=== PATIENT | female | born 1990 | race Caucasian/White ===

== ENCOUNTER 2018-10-02 03:21 | Inpatient (IN) | payer OTHER ==
[2018-10-02 06:35] LABS: ABS Lymphocytes 1.8 10^3/ul (1.0-4.8); ABS Monocytes 0.6 10^3/ul (0-0.8); ABS Neutrophils 7.9 10^3/ul (1.5-7.7); Eosinophil % 0.3 %; Hematocrit 34 % (35-47); Hemoglobin 11.2 g/dL (12.0-16.0); Lymphocyte % 17.5 %; Mean Corpuscular HGB Conc 33 g/dL (31-36); Mean Corpuscular Hemoglobin 27 pg (27-31); Mean Corpuscular Volume 82 fL (80-97); Nucleated Red Blood Cells % 0.1; Platelet Count 188 10^3/uL (150-450); Red Blood Count 4.15 10^6 /uL (3.70-4.87); Red Cell Distribution Width 15 % (10.5-15); White Blood Count 10.4 10^3/uL (3.5-10.8)
[2018-10-02] MEDS ORDERED: Buffered Lidocaine 1% SYRIN* 1 ML/SYRINGE INTRADERM ONE (07:10)
[2018-10-02] MEDS ORDERED: Lactated Ringers 1000 ML Bag* 1,000 ML IV ONE ×2 (07:10→10:39)
[2018-10-02] MEDS ORDERED: Penicillin G Potassium IV* 5,000,000 UNITS in NS 0.9% 100 ML* 100 ML IVPB ONE (07:16)
[2018-10-02] MEDS ORDERED: Penicillin G Potassium IV* 2,500,000 UNITS in NS 0.9% 100 ML* 100 ML IVPB SCH ×2 (08:00→12:00)
[2018-10-02] MEDS ORDERED: Lactated Ringers 1000 ML Bag* 1,000 ML IV SCH ×3 (08:00→14:00)
[2018-10-02] MEDS ORDERED: OBEPIDURAL* 250 ML EPIDURAL ONE ×2 (09:23→10:31)
[2018-10-02] MEDS ORDERED: Lactated Ringers 1000 ML Bag* 500 ML IV PRN ×2 (10:39)
[2018-10-02] MEDS ORDERED: Phenylephrine 40 MCG/ML SYRINGE IV PUSH PRN ×2 (10:39)
[2018-10-02] MEDS ORDERED: Sodium Citrate/Citric Acid* 15 ML UDC PO PRN (10:39)
[2018-10-02] MEDS ORDERED: EPHEDrine (Pressors)* 50 MG/ML VIAL IV PUSH PRN ×2 (10:39)
[2018-10-02] MEDS ORDERED: Famotidine TAB* 20 MG PO PRN (10:39)
[2018-10-02] MEDS ORDERED: OBEPIDURAL* 250 ML EPIDURAL SCH (11:00)
--- NOTE | 2018-10-02 12:24 | PN ---
Progress Note - Progress Note Date of Service: 10/02/18 SOAP: Subjective: [Pt with increasing pressure, comfortable on epidural] Objective: [FHR: 135, +accels, -decels, moderate variability cervical exam declined] Assessment: [28 y.o. , VSS, active labor] Plan: [1) Labor down 2) Anticipate vaginal delivery]
[2018-10-02] MEDS ORDERED: Oxytocin in LR* 20 UNITS/1,000 ML BAG IVPB ONE (13:48)
[2018-10-02] MEDS ORDERED: Witch Hazel PAD* JAR ONE (13:51)
[2018-10-02] MEDS ORDERED: Dibucaine 1% 28.35 GM TUBE ONE (13:51)
--- NOTE | 2018-10-02 13:54 | PROCNOTE ---
[facility] OB: Delivery Note - Delivery A Date of : 10/02/18 Time of : 13:42 Sex: Male Score 1 Minute: 8 Score 5 Minutes: 9 Gestational Age in Weeks and Days at Delivery: 38 Weeks and 5 Days Delivery Method: Spontaneous Vaginal Labor: Spontaneous Amniotic Fluid: Clear Estimated Blood Loss: 150 Anesthesia/Analgesia: CEI for Labor Delivered By: Anne Stephens - Nursery Level of Nursery: Regular/Bedside - Perineum Perineal Injury: Abrasion Only - Not Repaired Perineal Repair: None - Events Delivery Events of Note: Pitocin Only After Delivery - Additional Delivery Notes Additional Delivery Notes: nuchal cord x 1 reduced.
[2018-10-02] MEDS ORDERED: Dibucaine 1% 28.35 GM TUBE PR PRN (13:55)
[2018-10-02] MEDS ORDERED: Acetaminophen TAB* 325 MG PO PRN (13:55)
[2018-10-02] MEDS ORDERED: Witch Hazel PAD* JAR TOPICAL PRN (13:55)
[2018-10-02] MEDS ORDERED: Glycerin ADULT SUPP PR PRN (13:55)
[2018-10-02] MEDS ORDERED: Oxytocin in LR* 20 UNITS/1,000 ML BAG IVPB SCH (14:00)
[2018-10-02] MEDS: Ibuprofen TAB* 600 MG PO PRN ×2 (15:43→21:51)
[2018-10-02] MEDS: Docusate CAP* 100 MG PO SCH ×2 (15:46→21:29)
[2018-10-02] MEDS ORDERED: Simethicone TAB* 80 MG TAB.CHEW PO SCH (17:30)
[2018-10-03] MEDS: Ibuprofen TAB* 600 MG PO PRN ×3 (04:29→18:46)
[2018-10-03 07:08] LABS: ABS Lymphocytes 1.8 10^3/ul (1.0-4.8); ABS Monocytes 0.4 10^3/ul (0-0.8); ABS Neutrophils 7.5 10^3/ul (1.5-7.7); Eosinophil % 0.2 %; Hematocrit 28 % (35-47); Hemoglobin 9.1 g/dL (12.0-16.0); Lymphocyte % 18.4 %; Mean Corpuscular HGB Conc 33 g/dL (31-36); Mean Corpuscular Hemoglobin 27 pg (27-31); Mean Corpuscular Volume 83 fL (80-97); Mean Platelet Volume 10.3 fL (7.4-10.4); Platelet Count 136 10^3/uL (150-450); Red Blood Count 3.35 10^6 /uL (3.70-4.87); Red Cell Distribution Width 15 % (10.5-15); White Blood Count 9.8 10^3/uL (3.5-10.8)
[2018-10-03] MEDS: Ferrous Gluconate TAB* 324 MG TAB PO SCH ×2 (08:07→22:34)
[2018-10-03] MEDS: Docusate CAP* 100 MG PO SCH ×3 (08:07→22:34)
[2018-10-04] MEDS: Ibuprofen TAB* 600 MG PO PRN ×2 (03:47→09:27)
[2018-10-04 08:37] VITALS: BP 114/64
[2018-10-04] MEDS: Ferrous Gluconate TAB* 324 MG TAB PO SCH (09:27)
[2018-10-04] MEDS: Docusate CAP* 100 MG PO SCH (09:27)
== END 2018-10-04 14:13 | disposition home or self-care (01) | DRG 560 ==
LOC: MCHOBOUT 03:21 → MCHOB 03:38
PROVIDERS: ADMIT Obstetrics & Gynecology; ATTEND Obstetrics & Gynecology
PROC: 10E0XZZ Delivery of Products of Conception, External Approach (ICD-10-PCS; principal; 2018-10-02)
PROC: 4A1HXCZ Monitoring of Products of Conception, Cardiac Rate, External Approach (ICD-10-PCS; 2018-10-02)
DX: O99.52 Diseases of the respiratory system complicating childbirth (principal); Z37.0 Single live birth; O69.81X0 Labor and delivery complicated by cord around neck, without compression, not applicable or unspecified; O99.824 Streptococcus B carrier state complicating childbirth; J45.909 Unspecified asthma, uncomplicated; O77.0 Labor and delivery complicated by meconium in amniotic fluid; O90.81 Anemia of the puerperium; O71.82 Other specified trauma to perineum and vulva; Z88.1 Allergy status to other antibiotic agents; Z3A.38 38 weeks gestation of pregnancy; Z91.040 Latex allergy status
CPT/HCPCS: 36415; 84112; 85025; 86850; 86900; 86901; A9270-GY; J2540

== ENCOUNTER 2019-05-08 00:05 | Emergency (ER) | payer OTHER ==
--- NOTE | 2019-05-08 02:52 | ED ---
HPI Chest Pain - HPI Summary HPI Summary: Pt is a 28 y/o F presenting to the ED with a chief complaint of chest pressure. Pt states she was seeing Dr. Carr for a chronic sinus infection that was not resolving, characterized by a productive cough, congestion, sinus pressure, headaches, and post-nasal drip. She states over the past few days, shes had intermittent chest pain described as tightness in the low sternum, tenderness in her L arm and shoulder, and tonight she had some anxiety so she came into the ED. - History of Current Complaint Chief Complaint: EDChestPainROMI Time Seen by Provider: 05/08/19 02:32 Hx Obtained From: Patient Onset/Duration: Started Days Ago, Still Present Timing: Intermittent, Lasting Hours Initial Severity: Mild Current Severity: Moderate Pain Intensity: 6 Pain Scale Used: 0-10 Numeric Chest Pain Location: Lower Sternal Chest Pain Radiates: Yes Chest Pain Radiates To:: Arm Character: Tightness Aggravating Factor(s): Nothing Alleviating Factor(s): Nothing Associated Signs and Symptoms: Positive: Chest Pain, Anxiety, Headaches, Productive Cough, Nasal Congestion, Sinus Discomfrot, Other: - L arm tenderness - Allergy/Home Medications Allergies/Adverse Reactions: Allergies Allergy/AdvReac Type Severity Reaction Status Date / Time adhesive Allergy See Comment Verified 05/08/19 00:22 Latex, Natural Rubber Allergy See Comment Verified 05/08/19 00:22 pseudoephedrine Allergy Anxiety Verified 05/08/19 00:22 Home Medications: Home Medications guaiFENesin [Mucinex] 05/08/19 [History] PMH/Surg Hx/FS Hx/Imm Hx Previously Healthy: Yes Endocrine/Hematology History: Denies: Hx Diabetes Respiratory History: Reports: Hx Asthma - prn inhaler Psychiatric History: Reports: Hx Anxiety Infectious Disease History: No Infectious Disease History: Denies: Traveled Outside the [place] in Last 30 Days - Family History Known Family History: Negative: Diabetes - Social History Alcohol Use: None Hx Substance Use: No Substance Use Type: Reports: None Hx Tobacco Use: Yes Smoking Status (MU): Former Smoker Review of Systems Positive: Nasal Discharge, Other - sinus pressure, post nasal drip Positive: Chest Pain Positive: Cough Positive: Myalgia - L arm Positive: Headache Positive: Anxious All Other Systems Reviewed And Are Negative: Yes Physical Exam - Summary Physical Exam Summary: Appearance: Well-appearing, Well-nourished, lying in bed comfortably Skin: Warm, dry, no obvious rash Eyes: sclera anicteric, no conjunctival pallor ENT: mucous membranes moist, pharynx appears normal Neck: Supple, nontender Respiratory: Clear to auscultation, no signs of respiratory distress Cardiovascular: Normal S1, S2. No murmurs. Normal distal pulses in tibial and radial bilaterally. Abdomen: Soft, nontender, normal active bowel sounds present Musculoskeletal: Normal, Strength/ROM Intact Neurological: A&Ox3, awake and alert, mentation is normal, speech is fluent and appropriate Psychiatric: affect is normal, does not appear anxious or depressed Triage Information Reviewed: Yes Vital Signs On Initial Exam: Initial Vitals Temp Pulse Resp BP Pulse Ox 97.8 F 79 15 109/91 97 05/08/19 00:19 12 00:19 12 00:19 12 00:19 05/08/19 00:19 Vital Signs Reviewed: Yes Procedures - Sedation Patient Received Moderate/Deep Sedation with Procedure: No Diagnostics - Vital Signs Vital Signs Temp Pulse Resp BP Pulse Ox 05/08/19 00:19 97.8 F 79 15 109/91 97 - Laboratory Result Diagrams: 05/08/19 02:53 05/08/19 02:53 Lab Statement: Any lab studies that have been ordered have been reviewed, and results considered in the medical decision making process. - Radiology CXR Radiology Interpretation Completed By: ED Physician Summary of Radiographic Findings: No acute process. Pending official radiology report. - EKG 0007 Cardiac Rate: NL - 90bpm EKG Rhythm: Sinus Rhythm ST Segment: Normal Ectopy: None Summary of EKG Findings: EKG at 0007 shows NSR at 90bpm with P waves, QRS complex, and T waves are within normal limits, T waves and intervals are normal , no ischemic changes. This is a normal EKG. ED physician has reviewed and interpreted this EKG. Chest Pain Course/Dx - Course Course Of Treatment: Pt is a 28 y/o F presenting to the ED with a chief complaint of chest pressure. Pt states she was seeing Dr. Carr for a chronic sinus infection that was not resolving, characterized by a productive cough, congestion, sinus pressure, headaches, and post-nasal drip. She states over the past few days, shes had intermittent chest pain described as tightness in the low sternum, tenderness in her L arm and shoulder, and anxiety. Pt's physical exam is nml. CXR shows no acute process. EKG at 0007 shows NSR at 90bpm with P waves, QRS complex, and T waves are within normal limits, T waves and intervals are normal, no ischemic changes. This is a normal EKG. ED physician has reviewed and interpreted this EKG. Pt will be d/c'ed with dx of - Diagnoses Provider Diagnoses: Chest pain Discharge ED - Sign-Out/Discharge Documenting (check all that apply): Patient Departure - Discharge Plan Condition: Good Disposition: HOME Patient Education Materials: Noncardiac Chest Pain (ED) Referrals: Session Hema ALVARADO [Primary Care Provider] - If Needed - Billing Disposition and Condition Condition: GOOD Disposition: Home - Attestation Statements Document Initiated by Cinthyaibe: Yes Documenting Scribe: Regine Espinal Provider For Whom Grace is Documenting (Include Credential): Robert King MD. Scribe Attestation: Regine Nevarez scribed for Robert King MD. on 05/08/19 at 0637. Scribe Documentation Reviewed: Yes Provider Attestation: The documentation as recorded by the Regine durand accurately reflects the service I personally performed and the decisions made by Robert singleton MD. Status of Scribe Document: Viewed
[2019-05-08 03:04] LABS: ABS Basophils 0.1 10^3/ul (0-0.2); ABS Eosinophils 0.1 10^3/ul (0-0.6); ABS Lymphocytes 2.3 10^3/ul (1.0-4.8); ABS Monocytes 0.5 10^3/ul (0-0.8); ABS Neutrophils 5.2 10^3/ul (1.5-7.7); Eosinophil % 1.2 %; Hematocrit 39 % (35-47); Lymphocyte % 28.5 %; Mean Corpuscular HGB Conc 33 g/dL (31-36); Mean Corpuscular Hemoglobin 27 pg (27-31); Mean Corpuscular Volume 83 fL (80-97); Mean Platelet Volume 9.5 fL (7.4-10.4); Nucleated Red Blood Cells % 0.1; Platelet Count 236 10^3/uL (150-450); Red Blood Count 4.75 10^6 /uL (3.70-4.87); Red Cell Distribution Width 13 % (10-15); White Blood Count 8.2 10^3/uL (3.5-10.8)
[2019-05-08 03:19] LABS: Anion Gap 6 mmol/L (2-11); BUN/Creatinine Ratio 16.9 (8-20); Blood Urea Nitrogen 10 mg/dL (6-24); CO2 Carbon Dioxide 26 mmol/L (22-32); Calcium 9.6 mg/dL (8.6-10.3); Chloride 105 mmol/L (101-111); EGFR African American 144.8 (>60); EGFR Non-African American 119.7 (>60); Glucose 103 mg/dL (70-100); Sodium 137 mmol/L (135-145)
[2019-05-08 03:26] LABS: HCG Pregnancy < 0.60 mIU/mL
[2019-05-08 04:59] VITALS: BP 109/73
== END 2019-05-08 04:55 | disposition home or self-care (01) ==
LOC: ED 00:05
DX: R07.89 Other chest pain (principal); F41.9 Anxiety disorder, unspecified; R51 Headache; R05 Cough; R09.81 Nasal congestion; M79.602 Pain in left arm; J45.909 Unspecified asthma, uncomplicated; Z91.040 Latex allergy status; Z88.8 Allergy status to other drugs, medicaments and biological substances; Z91.048 Other nonmedicinal substance allergy status; Z87.891 Personal history of nicotine dependence
CPT/HCPCS: 36415; 71046; 80048; 84484; 84702; 85025; 93005; 99282

== ENCOUNTER 2019-07-28 16:53 | Emergency (ER) | payer MEDICAID, OTHER ==
--- NOTE | 2019-07-28 17:50 | ED ---
Influenza-Like Illness - HPI Summary HPI Summary: This patient is a 29 year old F presenting to [facility] with a chief complaint of muscle pain since one week ago. Pt reports she felt like she pulled a muscle moving furniture about one week ago. Pt is having pain in her back and when touch ribs, and under breast. It was her birthday recently so she ended up driving home at 0200 on 07/27/19 because she had an upset stomach. She felt a muscle spasm in her back, and she feels very congested. However pt reports she has chronic congestion. Pt is very tired, feels nausea due to post nasal drip, and reflux. Patient reports stool getting softer, JENKINS, and coughing. Patient denies vomiting, and fever. Pt has never had a blood clot, no long drives or trips, and no pain or swelling in legs. Her father just had an VT. Pt does not smoke, and has not recently drank alcohol. Pt has a 10 month old baby at home. Medications reviewed. Allergies noted. - History of Current Complaint Chief Complaint: EDGeneral Time Seen by Provider: 07/28/19 17:34 Hx Obtained From: Patient Onset/Duration: Gradual Onset, Lasting Days, Still Present Severity: Mild Associated Signs & Symptoms: Cough, Nasal Congestion, Headache - Allergy/Home Medications Allergies/Adverse Reactions: Allergies Allergy/AdvReac Type Severity Reaction Status Date / Time adhesive Allergy See Comment Verified 07/28/19 17:06 Latex, Natural Rubber Allergy See Comment Verified 07/28/19 17:06 pseudoephedrine Allergy Anxiety Verified 07/28/19 17:06 Home Medications: Home Medications NK [No Home Medications Reported] 07/28/19 [History Confirmed 07/28/19] PMH/Surg Hx/FS Hx/Imm Hx Endocrine/Hematology History: Denies: Hx Diabetes Respiratory History: Reports: Hx Asthma - prn inhaler Psychiatric History: Reports: Hx Anxiety Infectious Disease History: No Infectious Disease History: Denies: Traveled Outside the [place] in Last 30 Days - Family History Known Family History: Positive: Other - [place] Negative: Diabetes - Social History Alcohol Use: None Hx Substance Use: No Substance Use Type: Reports: None Hx Tobacco Use: Yes Smoking Status (MU): Former Smoker Review of Systems Negative: Fever Positive: Nasal Discharge Positive: Cough Positive: Abdominal Pain, Nausea. Negative: Vomiting Positive: Other - back pain Positive: Headache All Other Systems Reviewed And Are Negative: Yes Physical Exam - Summary Physical Exam Summary: Constitutional: Well-developed, Well-nourished, Alert. (-) Distressed Skin: Warm, Dry, No rash on lateral chest wall or back HENT: Normocephalic; Atraumatic Eyes: Conjunctiva normal Neck: Musculoskeletal ROM normal neck. (-) JVD, (-) Stridor, (-) Tracheal deviation Cardio: Rhythm regular, rate normal, Heart sounds normal; Intact distal pulses; Radial pulses are 2+ and symmetric. (-) Murmur Pulmonary/Chest wall: Effort normal. (-) Respiratory distress, (-) Wheezes, (-) Rales Abd: Soft, (-) tenderness, (-) Distension, (-) Guarding, (-) Rebound Musculoskeletal: (-) Edema; two small areas of tenderness under posterior left back and under left breast; no leg swelling or tenderness Lymph: (-) Cervical adenopathy Neuro: Alert, Oriented x3 Psych: Mood and affect Normal Triage Information Reviewed: Yes Vital Signs On Initial Exam: Initial Vitals Temp Pulse Resp BP Pulse Ox 98.6 F 98 19 119/89 99 07/28/19 17:00 07/28/19 17:00 07/28/19 17:00 07/28/19 17:00 07/28/19 17:00 Vital Signs Reviewed: Yes Procedures - Sedation Patient Received Moderate/Deep Sedation with Procedure: No Diagnostics - Vital Signs Vital Signs Temp Pulse Resp BP Pulse Ox 07/28/19 17:00 98.6 F 98 19 119/89 99 - Laboratory Result Diagrams: 07/28/19 18:22 07/28/19 18:22 Lab Statement: Any lab studies that have been ordered have been reviewed, and results considered in the medical decision making process. - EKG 1753 Cardiac Rate: NL EKG Rhythm: Sinus Rhythm Summary of EKG Findings: EKG at 17:53 reveals normal sinus rhythm with rate of 78 BPM, no STEMI. This EKG was reviewed and interpreted by ED physician. Re-Evaluation - Re-Evaluation First Eval Re-Evaluation Time: 18:41 Comment: Pt will be signed out to Manish. Flu Symptom Course/Dx - Course Course Of Treatment: Patient is here with 1 week of URI symptoms and left-sided chest pain. Patient is concerned as her father had a heart attack 2 days ago. Patient's story is not consistent with ACS been EKG was performed which showed no ischemic changes. Patient signed out to Dr. Hammond pending lab work. - Diagnoses Provider Diagnoses: Left-sided chest pain, Nasal congestion, Cough Discharge ED - Sign-Out/Discharge Documenting (check all that apply): Sign-Out Patient Signing out patient TO: Heidi Hammond - pending troponin Receiving patient FROM: Leroy Tipton - Discharge Plan Condition: Stable Disposition: HOME Patient Education Materials: Upper Respiratory Infection (ED) Referrals: Session Hema ALVARADO [Primary Care Provider] - Additional Instructions: Take Motrin and Tylenol for pain, take prescribed medication for cough. Come back to ED if you have severe chest pain, trouble breathing or any other concerning symptoms. - Billing Disposition and Condition Condition: STABLE Disposition: Home - Attestation Statements Document Initiated by Scribe: Yes Documenting Scribe: Silvia Rubalcava Provider For Whom Grace is Documenting (Include Credential): Leroy Tipton MD Scribe Attestation: Silvia Nevarez, scribed for Leroy Tipton MD on 07/29/19 at 0732. Scribe Documentation Reviewed: Yes Provider Attestation: The documentation as recorded by the Silvia durand accurately reflects the service I personally performed and the decisions made by , Leroy Tipton MD Status of Scribe Document: Viewed
[2019-07-28 18:30] LABS: ABS Monocytes 0.4 10^3/ul (0-0.8); ABS Neutrophils 2.8 10^3/ul (1.5-7.7); Eosinophil % 0.6 %; Hematocrit 39 % (35-47); Hemoglobin 13.1 g/dL (12.0-16.0); Lymphocyte % 37.5 %; Mean Corpuscular HGB Conc 34 g/dL (31-36); Mean Corpuscular Hemoglobin 28 pg (27-31); Mean Corpuscular Volume 83 fL (80-97); Mean Platelet Volume 9.9 fL (7.4-10.4); Platelet Count 239 10^3/uL (150-450); Red Blood Count 4.68 10^6 /uL (3.70-4.87); Red Cell Distribution Width 14 % (10-15); White Blood Count 5.3 10^3/uL (3.5-10.8)
[2019-07-28 18:36] LABS: Influenza A Molecular Negative (Negative); Influenza B Molecular Negative (Negative)
[2019-07-28 18:56] LABS: Albumin 4.8 g/dL (3.2-5.2); BUN/Creatinine Ratio 13.3 (8-20); Calcium 9.8 mg/dL (8.6-10.3); EGFR African American 109.1 (>60); EGFR Non-African American 90.1 (>60); Globulin 2.4 g/dL (2-4); Potassium 3.8 mmol/L (3.5-5.0); Total Protein 7.2 g/dL (6.4-8.9)
[2019-07-28 19:28] VITALS: BP 116/71
--- NOTE | 2019-07-28 19:51 | ED ---
Progress - Progress Note Progress Note: 29 y/o F signed out from Dr. Tipton upon shift change 07/28/2019 1900. Awaiting CXR and labs. Pending disposition. - EKG/XRAY/CT XRAY: chest - No acute process. Pending official report. Re-Evaluation - Re-Evaluation First Eval Re-Evaluation Time: 18:41 Comment: Pt will be signed out to Manish. Course/Dx - Course Course Of Treatment: D dimer negative. CXR neg. D/w patient who feels comfortable going home. VSS NAD on discharge. - Diagnoses Provider Diagnoses: Left-sided chest pain, Nasal congestion, Cough Discharge ED - Sign-Out/Discharge Documenting (check all that apply): Patient Departure - Discharge Plan Condition: Stable Disposition: HOME Patient Education Materials: Upper Respiratory Infection (ED) Referrals: Hema Gonzalez [Primary Care Provider] - Additional Instructions: Take Motrin and Tylenol for pain, take prescribed medication for cough. Come back to ED if you have severe chest pain, trouble breathing or any other concerning symptoms. - Billing Disposition and Condition Condition: STABLE Disposition: Home - Attestation Statements Document Initiated by Scribe: Yes Documenting Scribe: Sharifa Mcclure Provider For Whom Scribe is Documenting (Include Credential): Heidi Hammond MD Scribe Attestation: ISharifa, scribed for Heidi Hammond MD on 07/28/19 at 2006. Scribe Documentation Reviewed: Yes Provider Attestation: The documentation as recorded by the scribeSharifa accurately reflects the service I personally performed and the decisions made by Heidi singleton MD Status of Scribe Document: Viewed
== END 2019-07-28 19:20 | disposition home or self-care (01) ==
LOC: ED 16:53
DX: R07.89 Other chest pain (principal); R09.81 Nasal congestion; R05 Cough; Z87.891 Personal history of nicotine dependence; M54.9 Dorsalgia, unspecified
CPT/HCPCS: 36415; 71046; 80053; 84484; 85025; 85379; 93005; 99282